=== PATIENT | male | born 1945 | race Caucasian/White ===

== ENCOUNTER 2018-05-24 11:03 | Day surgery (SDC) | payer MEDICARE, OTHER ==
[2018-05-24] MEDS ORDERED: Xylocaine-Mpf 2% 5 Ml Vial IJ ONE (11:04)
[2018-05-24] MEDS ORDERED: Decadron 4 MG INJ IJ ONE (11:04)
[2018-05-24] MEDS ORDERED: DIPRIVAN 200 MG/20 ML IV ONE (11:04)
--- NOTE | 2018-05-24 13:51 | XRAY ---
Indication: C3-C5 MBB. Intraoperative fluoroscopy was provided for 12 seconds. 2 digital spot images submitted for interpretation demonstrates spinal needle tips projecting over the expected course of the left C3-C5 nerve roots. Correlate with intraoperative findings/report.
--- NOTE | 2018-05-24 13:53 | XRAY ---
12 seconds fluoroscopy time in surgery for left C3-C5 MBB.
[2018-05-24] MEDS ORDERED: Lactated Ringers 1,000 ML IV ONE (14:31)
== END 2018-05-24 13:17 | disposition home or self-care (01) ==
LOC: SDC-PAIN 11:03
PROVIDERS: ATTEND Psychiatry & Neurology Pain Medicine
DX: M47.812 Spondylosis without myelopathy or radiculopathy, cervical region (principal)
CPT/HCPCS: 64490; 64491; 72020; 77003; J1100; J2704

== ENCOUNTER 2020-10-10 14:02 | Emergency (ER) | payer MEDICARE, OTHER ==
--- NOTE | 2020-10-10 14:54 | XRAY ---
Indication: Dizziness. Fall. Stroke. Multiple contiguous axial images obtained through the head without contrast. Comparison: December 29, 2006. Progressive age-related global atrophy and minimal periventricular degenerative micro-ischemia within normal limits for patient's age. No acute intracranial hemorrhage, abnormal extra-axial fluid collection, or mass effect. Fourth ventricle is midline without hydrocephalus. Bony calvarium intact. Visualized paranasal sinuses and mastoid air cells are clear. Impression: Normal aging brain including atrophy and degenerative micro-ischemia. No acute intracranial abnormalities.
[2020-10-10 15:16] LABS: BASOPHIL % 0.2 % (0.0-0.4); Basophil (Absolute #) 0.02 (0-0.4); Eosinophil % 1.3 % (0.00-5.0); Eosinophil (Absolute #) 0.13 (0-0.5); Hematocrit 44.3 % (42-50); Hemoglobin 14.3 gm/dl (12.5-18.0); Lymphocyte (Absolute #) 1.78 (1.0-4.6); Lymphocytes % 18.3 % (24.0-44.0); Mean Cell Volume 94.7 fl (78-100); Mean Corpuscular Hemoglobin 30.6 pg (26-32); Mean Corpuscular Hgb Concent. 32.3 g/dl (32-36); Mean Platelet Volume 10.7 fl (7.5-11.0); Monocytes % 9.2 % (0.0-12.0); Platelet Count 263 K/mm3 (150-450); Red Blood Count 4.68 M/mm3 (4.1-5.6); White Blood Count 9.7 K/mm3 (4.0-10.5)
[2020-10-10 15:20] VITALS: BP 160/91; PULSE 82; O2SAT 99
[2020-10-10] MEDS: Sodium Chloride 0.9% 1000 ML 1,000 ML IV SCH (15:24)
[2020-10-10 15:26] LABS: ALBUMIN 3.7 g/dL (3.5-5.0); ALKALINE PHOSPHATASE 70 U/L (38-126); ANION GAP 10.8 MEQ/L (5-15); BLOOD UREA NITROGEN 10 mg/dL (9-20); CHLORIDE 107 mmol/L (98-107); Calcium 9.1 mg/dL (8.4-10.2); Carbon Dioxide 25 mmol/L (22-30); Creatinine 1 0.82 mg/dL (0.66-1.25); EST GLOMERULAR FILTRATION RATE > 60.0 ML/MIN; Glucose 94 mg/dL (74-106); Potassium 3.9 mmol/L (3.5-5.1); SGOT/AST 22 U/L (17-59); SGPT/ALT 12 U/L (0-50); SODIUM 138 mmol/L (137-145); Total Protein 6.2 g/dL (6.3-8.2)
[2020-10-10] MEDS ORDERED: Sodium Chloride 0.9% 1000 ML 1,000 ML ONE (15:48)
[2020-10-10 15:54] LABS: Appearance CLEAR (CLEAR); Bilirubin NEGATIVE (NEGATIVE); Blood NEGATIVE Ery/ul (0-5); Glucose NEGATIVE (NEGATIVE); Ketones NEGATIVE (NEGATIVE); Leukocyte Esterase NEGATIVE (NEGATIVE); Nitrite NEGATIVE (NEGATIVE); Protein,Urine Dip NEGATIVE (Negative); Specific Gravity 1.006 (1.005-1.025); Urobilinogen NEGATIVE mg/dL (0-1)
[2020-10-10] MEDS: BABY ASPIRIN 81 MG CHEW PO ONE (15:56)
[2020-10-10 15:58] LABS: Bacteria NONE SEEN /HPF (NEGATIVE)
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
--- NOTE | 2020-10-10 16:10 | XRAY ---
Indication: Fall. Dizziness. Stroke symptoms. Comparison: None Portable chest demonstrates lingula subsegmental atelectasis/scarring. Remaining heart and lungs unremarkable. Bony thorax intact with mild degenerative changes and right shoulder arthroplasty.
== END 2020-10-10 16:25 | disposition left against medical advice (07) ==
LOC: ED 14:02
DX: R29.818 Other symptoms and signs involving the nervous system (principal)
CPT/HCPCS: 36415; 70450; 71045; 80053; 81001; 84484; 85025; 93005; 93041; 99284; 99291; A9270-GY